=== PATIENT | female | born 1985 | race Caucasian/White ===

== ENCOUNTER 2022-12-26 11:13 | Emergency (ER) | payer MEDICAID, SELFPAY ==
[2022-12-26 11:51] VITALS: BP 132/90; PULSE 66; RESP 16; TEMP 36.7; O2SAT 100; BMI 30.4
[2022-12-26 12:00] VITALS: PULSE 104; RESP 16
--- NOTE | 2022-12-26 12:09 | W.ED.ABDPA2 ---
HPI - Abdominal Pain General: Chief Complaint: Abdominal Pain Stated Complaint: upper abd pain Time Seen by Provider: 12/26/22 11:38 History of Present Illness: Patient presents to the ER with epigastric abdominal pain. Pain has been going on for about 2 weeks waxing and waning but here in the last 24 hours is gotten severe enough patient is decided to come to the ER to have it checked out. Patient says when she was out in a waiting room she took a drink of water felt up to go all way down and hit a certain spot in her epigastric region that just said everything off made everything extremely worse. Patient does not have a history of peptic ulcer disease and is on no medicines. MD elicited complaint: abdominal pain Pertinent past history: none Onset (ago): week(s) (A couple weeks worse in the last 24 hours) Pain Consistency: intermittent Location: Epigastric Severity: moderate Quality: burning Radiation: none Migration to: no migration Exacerbating factors: eating Relieving factors: nothing Associated Symptoms: Reports nausea; Denies chills, dysuria and fever(s) Review of Systems General: Reports: 10 or more systems reviewed and unremarkable except in HPI and below Const: Denies: fever(s) or chills Eyes: Denies: change in vision or photophobia ENMT: Denies: throat pain or enlarged tonsils Card: Denies: chest pain, palpitations or irregular heart rhythm Resp: Denies: dyspnea, productive cough or non-productive cough GI: Reports: abdominal pain and nausea : Denies: flank pain, difficulty voiding or dysuria Musc: Denies: neck pain, back pain or extremity pain Skin/Breast: Denies: rash or pruritus Physical Exam Const: COMMON NORMALS: no acute distress, average body habitus, patient oriented x3, no limitations, healthy appearing, alert and well nourished HENMT: COMMON NORMALS: normocephalic, atraumatic, hearing grossly normal bilaterally, external ears normal, Normal external nose present and moist oral mucous membranes HEAD & SCALP: normocephalic and atraumatic NOSE: Normal external nose present EXTERNAL EAR: Yes external ears normal Eye: COMMON NORMALS: Equal, round and reactive pupils present, EOMs intact bilaterally, conjunctivae normal and no scleral icterus CONJUNCTIVA: Yes conjunctivae normal PUPIL: Yes Equal, round and reactive pupils present Neck/C-Spine: COMMON NORMALS: full ROM, no lymphadenopathy, supple, no meningeal signs, no JVD and Thyroid normal THYROID: Thyroid normal Lymph: LYMPHATIC: no lymphadenopathy noted Chest: COMMONS NORMALS: normal inspection of the chest and normal palpation of entire chest wall Resp: COMMON NORMALS: normal respiratory effort, No retractions, No use of accessory muscles and clear to auscultation bilaterally AUSCULTATION: clear to auscultation bilaterally Cardio: COMMON NORMALS: no JVD, regular rate, regular rhythm, S1 normal heart sound present, S2 normal heart sound present, No gallops present (Cardio), No clicks present (Cardio) and No murmurs present (Cardio) RATE: regular rate RHYTHM: regular rhythm HEART SOUNDS: S1 normal heart sound present and S2 normal heart sound present GI: COMMON NORMALS: Soft to palpation INSPECTION: Yes normal to inspection AUSCULTATION: Yes normoactive bowel sounds PALPATION: Yes Soft to palpation and Yes Tenderness to palpation present (GI) (Epigastric region) : COMMON NORMALS: Yes no CVA tenderness BLADDER/KIDNEY EXAM: Yes no CVA tenderness Back/Pelvis: COMMON NORMALS: no CVA tenderness Extremity: COMMON NORMALS: normal to inspection Neuro: COMMON NORMALS: patient oriented x3 SENSORIUM/ORIENTATION: Yes alert MENINGEAL SIGNS: Yes no meningeal signs Course Vital Signs: Vital signs: Vital Signs Temperature 98.1 F 12/26/22 11:51 Pulse Rate 104 H 12/26/22 12:00 Respiratory Rate 16 12/26/22 12:00 Blood Pressure 132/90 12/26/22 11:51 Pulse Oximetry 100 12/26/22 11:51 Oxygen Delivery Me thod Room Air 12/26/22 11:51 MDM - Abdominal Pain Medical Decision Making Patient presents to the ER with epigastric pain that is worse with drinking. Patient has not had this before. Physical exam was performed and lab work was ordered and reviewed which was essentially benign patient was given a GI cocktail which drastically improved the pain. These findings was discussed with the patient and peptic ulcer disease was explained to the patient. Patient will be discharged on Pepcid twice daily and is to follow-up with her family practice doctor within 1 to 2 weeks as needed. Differential Diagnosis Likely abdominal pain; Unlikely acute appendicitis, calculus of kidney, constipation, diverticulitis, endometriosis, gastroenteritis, pancreatitis or small bowel obstruction Medical Records I reviewed the patient's medical records. Lab Data I reviewed the patient's lab results. 12/26/22 12:23 12/26/22 12:23 Labs/Radiology: Laboratory Results WBC 8.4 10^3/uL (4.0-10.0) 12/26/22 12:23 RBC 4.70 10^6/uL (4.1-5.3) 12/26/22 12:23 Hgb 14.1 g/dL (11.5-15.3) 12/26/22 12: Hct 41.3 % (37.0-47.0) 12/26/22 12: MCV 87.9 fl (81-99) 12/26/22 12: MCH 30.0 pg (28.0-34.0) 12/26/22 12: MCHC 34.1 g/dL (30.0-36.0) 12/26/22 12: RDW 12.5 % (12.1-15.1) 12/26/22 12: Plt Count 245 10^3/cmm (130-400) 12/26/22 12:23 MPV 9.0 fL (7.4-10.4) 12/26/22 12:23 Neut % (Auto) 81.0 % 12/26/22 12: Lymph % (Auto) 10.2 % 12/26/22 12:23 Perkins % (Auto) 6.0 % 12/26/22 12:23 Eos % (Auto) 1.7 % 12/26/22 12:23 Baso % (Auto) 0.6 % 12/26/22 12:23 Neut # (Auto) 6.77 10^3/uL (1.8-7.7) 12/26/22 12:23 Lymph # (Auto) 0.9 10^3/uL (0.8-4.8) 12/26/22 12:23 Perkins # (Auto) 0.5 10^3/uL (0.2-0.9) 12/26/22 12:23 Eos # (Auto) 0.1 10^3/uL (0.0-0.8) 12/26/22 12:23 Baso # (Auto) 0.1 10^3/uL (0.0-0.1) 12/26/22 12:23 Nucleated RBC % (auto) 0 % 12/26/22 12: Nucleated RBCs # 0.0 /100WBC 12/26/22 12:23 Sodium 134 mmol/L (136-145) L 12/26/22 12:23 Potassium 3.9 mmol/L (3.5-5.1) 12/26/22 12:23 Chloride 101 mmol/L (98-107) 12/26/22 12: Carbon Dioxide 21 mmol/L (22-29) L 12/26/22 12:23 Anion Gap 15.9 (5-19) 12/26/22 12:23 BUN 11 mg/dL (6-20) 12/26/22 12: Creatinine 0.8 mg/dL (0.5-0.9) 12/26/22 12: GFR Calculation 81.2 mL/min (90-130) L 12/26/22 12:23 Glucose 89 mg/dL (65-115) 12/26/22 12: Calculated Osmolality 277 mOsm/kg (285-295) L 12/26/22 12:23 Calcium 9.9 mg/dL (8.5-10.5) 12/26/22 12: Total Bilirubin 1.0 mg/dL (0.15-1.2) 12/26/22 12: AST 18 U/L (0-32) 12/26/22 12: ALT 19 U/L (0-33) 12/26/22 12:23 Alkaline Phosphatase 53 U/L (35-105) 12/26/22 12:23 Total Protein 6.8 g/dL (6.6-8.7) 12/26/22 12: Albumin 4.1 g/dL (3.5-5.2) 12/26/22 12:23 Globulin 2.7 g/dL (1.3-4.6) 12/26/22 12: Lipase 20 U/L (13-60) 12/26/22 12:23 HCG, Qual Negative (Negative) 12/26/22 12:23 Urine Color Yellow (Yellow) 12/26/22 11:58 Urine Appearance Clear (CLEAR) 12/26/22 11:58 Urine pH 6 (5-7) 12/26/22 11:58 Ur Specific Mellen 1.025 (1.005-1.030) 12/26/22 11:58 Urine Protein Neg (Negative) 12/26/22 11:58 Urine Glucose (UA) Norm (Normal) 12/26/22 11:58 Urine Ketones Negative (Negative) 12/26/22 11:58 Urine Blood Neg (Negative) 12/26/22 11:58 Urine Nitrate Negative (Negative) 12/26/22 11:58 Urine Bilirubin Neg (Negative) 12/26/22 11:58 Urine Urobilinogen Neg mg/dL (Negative) 12/26/22 11:58 Ur Leukocyte Esterase Negative (Negative) 12/26/22 11:58 Discharge Plan Discharge Patient Disposition: Home Clinical Impression: Gastritis Qualifiers: Gastritis type: unspecified gastritis Chronicity: acute Gastritis bleeding: without bleeding Qualified Code(s): K29.00 - Acute gastritis without bleeding Peptic ulcer of stomach Qualifiers: Gastric ulcer chronicity: acute Qualified Code(s): K25.3 - Acute gastric ulcer without hemorrhage or perforation Condition: Stable Prescriptions: New famotidine [Pepcid] 20 mg tablet 20 mg PO BID Qty: 60 0RF Discharge Orders: Discharge ED (Routine); Ordered 12/26/22 Ordered By: Conrado Gonzalez Patient Instructions: Peptic Ulcers Coding Level of Care Code ED Exercise Science Instructor for Patricia Cleveland
[2022-12-26 12:19] LABS: Add Urine Microscopic? NO; Charge for UA Resulting for Rev
[2022-12-26 12:25] LABS: Bilirubin Urine Neg (Negative); Blood Urine Neg (Negative); Glucose Urine UA Norm (Normal); Ketones Urine Negative (Negative); Leukocyte Esterase Urine Negative (Negative); Nitrate Urine Negative (Negative); Protein Urine Neg (Negative); Specific Gravity, Urine 1.025 (1.005-1.030); Urine Appearance Clear (CLEAR); Urine Color Yellow (Yellow); Urobilinogen Urine Neg (Negative); pH Urine 6 (5-7)
[2022-12-26 12:30] LABS: Basophils # 0.1 10^3/uL (0.0-0.1); Basophils % 0.6 %; Eosinophils # 0.1 10^3/uL (0.0-0.8); Eosinophils % 1.7 %; Hematocrit 41.3 % (37.0-47.0); Hemoglobin 14.1 g/dL (11.5-15.3); Lymphocytes # 0.9 10^3/uL (0.8-4.8); Lymphocytes % 10.2 %; Mean Corpuscular HGB Conc 34.1 g/dL (30.0-36.0); Mean Corpuscular Volume 87.9 fl (81-99); Monocytes # 0.5 10^3/uL (0.2-0.9); Neutrophils # 6.77 10^3/uL (1.8-7.7); Nucleated Red Blood Cells % 0 %; Platelet Count 245 10^3/cmm (130-400); Red Cell Distribution Width 12.5 % (12.1-15.1); White Blood Count 8.4 10^3/uL (4.0-10.0)
[2022-12-26] MEDS: sodium chloride 0.9% 1,000 ML 999 ML IV (12:38)
[2022-12-26] MEDS: ondansetron 2 mg/ML SDV 2 mL 4 MG IVP (12:38)
[2022-12-26 12:43] LABS: HCG, Serum Qual Negative (Negative)
[2022-12-26 12:48] LABS: Alanine Aminotransferase 19 U/L (0-33); Albumin Level 4.1 g/dL (3.5-5.2); Alkaline Phosphatase 53 U/L (35-105); Anion Gap 15.9 (5-19); Aspartate Amino Transferase 18 U/L (0-32); Blood Urea Nitrogen 11 mg/dL (6-20); Calcium 9.9 mg/dL (8.5-10.5); Carbon Dioxide 21 mmol/L (22-29); Chloride 101 mmol/L (98-107); Globulin 2.7 g/dL (1.3-4.6); Glomerular Filtration Rate 81.2 mL/min (90-130); Glucose 89 mg/dL (65-115); Lipase 20 U/L (13-60); Osmolality Calculated 277 mOsm/kg (285-295); Potassium 3.9 mmol/L (3.5-5.1); Sodium 134 mmol/L (136-145); Total Protein 6.8 g/dL (6.6-8.7)
[2022-12-26] MEDS: lidocaine 2% viscous 15 ML, aluminum-mag hydrox-simethicon 30 ML, sucralfate oral liq 1 GM PO (13:14)
[2022-12-26 13:26] VITALS: BP 90/55; PULSE 98; RESP 14; O2SAT 95
--- NOTE | 2023-01-10 11:29 | DCPLANNER ---
TCM called patient due to no primary care physician - no answer at this time.
== END 2022-12-26 13:39 | disposition home or self-care (01) ==
PROVIDERS: Physician Assistant; Emergency Provider Emergency Medicine
DX: K29.00 Acute gastritis without bleeding (principal); K25.3 Acute gastric ulcer without hemorrhage or perforation
CPT/HCPCS: 80053; 81003; 83690; 84703; 85025; 96361; 96374; 99284; J2405; J7030

== ENCOUNTER → 2023-07-24 09:53 | Outpatient (BNVA) | payer MEDICAID, SELFPAY | PROVIDERS: PCP Family Medicine Adult Medicine; Visit Provider Family Medicine Adult Medicine | DX: M25.511 Pain in right shoulder (principal); G89.29 Other chronic pain; F17.200 Nicotine dependence, unspecified, uncomplicated; R05.9 Cough, unspecified; Z13.6 Encounter for screening for cardiovascular disorders; Z76.89 Persons encountering health services in other specified circumstances | CPT/HCPCS: 71046; 73030; 80053; 80061; 82306; 83036; 84443; 85025 ==

== ENCOUNTER → 2023-08-24 08:30 | Outpatient (BNVA) | payer MEDICAID, SELFPAY | PROVIDERS: PCP Family Medicine Adult Medicine; Referring Provider Family Medicine Adult Medicine; Visit Provider Physician Assistant | DX: M75.41 Impingement syndrome of right shoulder | CPT/HCPCS: 73030 ==

== ENCOUNTER → 2023-10-09 11:42 | Outpatient (BNVA) | payer MEDICAID, SELFPAY | PROVIDERS: PCP Family Medicine Adult Medicine; Visit Provider Obstetrics & Gynecology | DX: Z01.419 Encounter for gynecological examination (general) (routine) without abnormal findings (principal) | CPT/HCPCS: 87624 ==

== ENCOUNTER → 2023-10-29 08:40 | Outpatient (BNVA) | payer MEDICAID, SELFPAY | PROVIDERS: PCP Family Medicine Adult Medicine; Visit Provider Obstetrics & Gynecology | DX: Z30.431 Encounter for routine checking of intrauterine contraceptive device (principal) | CPT/HCPCS: 76830 ==

== ENCOUNTER 2023-11-22 11:49 | Day surgery (SDC) | payer MEDICAID, SELFPAY ==
[2023-11-22] VITALS (8 sets, daily range): BP systolic 103–121; BP diastolic 59–85; PULSE 58–91; RESP 16–18; TEMP 36.1–36.5; O2SAT 98–100; BMI 34.9
--- NOTE | 2023-11-22 02:57 | W.PM.OPSFHP ---
Same Day Surgery H&P Indication for Procedure/HPI DATE OF PROCEDURE: November 22, 2023 CHIEF COMPLAINT/INDICATIONFOR SURGICAL PROCEDURE: lost IUD strings PREOP DIAGNOSIS: lost IUD strings PLANNED PROCEDURE: Operation Date: 11/22/23 13:35 Proposed Procedures p Hysteroscopy(Not Applicable) - Kentrell Chance MD s Removal Of Interuterine Device(Not Applicable) - Kentrell Chance MD 38 y.o. 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 October 09, 2023 IUD string was not visible Now scheduled for hysteroscopic removal of IUD Medications/Allergies* Home Medications Medication Instructions Recorded Confirmed Type famotidine 20 mg tablet (Pepcid) 20 mg PO BID PRN Acid Reflux 07/24/23 11/21/23 History Allergies/Adverse Reactions Allergy/AdvReac Type Severity Reaction Status Date / Time No Known Allergies Allergy Verified 11/05/23 09:16 Pertinent History/Comorbid Conditions* Medical History (Updated 11/14/23 @ 19:01 by Bola Bell MD) Weight gain, abnormal Obesity Cough in adult Smoker Chronic right shoulder pain Endometriosis determined by laparoscopy Surgical History (Updated 07/24/23 @ 09:30 by Bola Bell MD) Hx of section History of tonsillectomy H/O sinus surgery S/P ACL repair H/O eye surgery Family History (Updated 10/09/23 @ 08:31 by Delma Sewell LPN) Hypercholesteremia Cancer Mother cervical Hypertension Mother Thyroid disease Father Denies family history of Colon cancer Ovarian cancer Prostate cancer Diabetes Heart disease Breast cancer Uterine cancer Stroke Social History Smoking and tobacco/nicotine status: current every day tobacco/nicotine user Quit status (tobacco/nicotine): considering quitting Alcohol intake: current Alcohol intake frequency: holidays/special occasions only Substance/Drug Use: never Pertinent Exam Findings alert, oriented x 3, clear to auscultation bilaterally and regular rate & rhythm Recommendations Surgery/Procedure today Coding Level of Care Code Acute Code for Chg Fwd Time Spent (min) 20
--- NOTE | 2023-11-22 11:55 | W.PM.OPSUD ---
Surgery/Procedure H&P Update DATE OF PROCEDURE: November 22, 2023 DATE H&P PERFORMED: 11/22/23 H&P UPDATE INFORMATION: I have reviewed H&P completed within last 30 days, I have examined patient prior to procedure and No changes to prior documentation PREOP DIAGNOSIS: lost intrauterine device strings PLANNED PROCEDURE: Operation Date: 11/22/23 13:35 Proposed Procedures p Hysteroscopy(Not Applicable) - Kentrell Chance MD s Removal Of Interuterine Device(Not Applicable) - Kentrell Chance MD
[2023-11-22] MEDS: sodium chloride 0.9% 1,000 ML 30 ML IV (12:19)
[2023-11-22 12:24] LABS: OR HCG Qualitative Urine Negative (Negative)
[2023-11-22] MEDS: scopolamine 1.5 Patch 1 PATCH TRANSDERMA (12:24)
--- NOTE | 2023-11-22 12:46 | ANES.PREANE2 ---
Pre-Anesthetic Assessment Height/Weight: Height 1.73 m Weight 104.326 kg Temp Pulse Resp BP Pulse Ox O2 Del Method 97.7 F 82 18 121/81 98 Room Air 11/22/23 12:04 11/22/23 12:04 11/22/23 12:04 11/22/23 12:04 11/22/23 12:04 11/22/23 12:05 Preop Diagnosis: lost intrauterine device strings Operation Date: 11/22/23 13:35 Proposed Procedures p Hysteroscopy(Not Applicable) - Kentrell Chance MD s Removal Of Interuterine Device(Not Applicable) - Kentrell Chance MD Familial anesthetic complications: None Was Beta Felisa taken within 24 hours: N/A Was Clonidine taken within 24 hours: N/A Last intake: Intake Last Liquid Date 11/21/23 Last Liquid Time 21:00 Last Solid Date 11/21/23 Last Solid Time 21:00 Social Tobacco and No alcohol 0.5 pack(s) per day 20 pack years Exam alert, oriented x 3 and clear to auscultation bilaterally Airway Submandibular: within normal limits Mallampati: Class II Dentition: full History/ROS No significant history except as noted Pulmonary Cough CV/HEM None reported None reported Hepatic None reported GI None reported Metabolic None reported Musc/skel None reported Neuropsych None reported Anesthetic Plan ASA status: 2 Anesthesia: Anesthesia Evaluation and General Risk of > 500 ml blood loss (7ml/kg in children): No Medications/Allergies Home Medications Medication Instructions Recorded Confirmed Last Taken Type famotidine 20 mg tablet (Pepcid) 20 mg PO BID PRN Acid Reflux 07/24/23 11/21/23 Unknown History meloxicam 15 mg tablet 15 mg PO DAILY #30 tabs 09/25/23 11/21/23 Unknown Rx bupropion HCl 300 mg 24 hr tablet, 300 mg PO QAM #30 tabs 10/24/23 11/21/23 11/21/23 Rx extended release levonorgestrel 21 mcg/24 hours (8 1 device intrauterine ONCE #1 ea 10/24/23 11/21/23 Unknown Rx yrs) 52 mg intrauterine device (Mirena) Allergies Allergy/AdvReac Type Severity Reaction Status Date / Time No Known Allergies Allergy Verified 11/22/23 11:59 Current Medications Generic Name Dose Route Start Last Admin Trade Name Freq PRN Reason Stop Dose Admin Sodium Chloride 1,000 mls @ 30 mls/hr 11/22/23 12:00 11/22/23 12:19 Sodium Chloride 0.9% IV 11/23/23 11:59 30 mls/hr .Q24H WILIAN Administration PFSH Anesthesia Medical History Weight gain, abnormal Obesity Cough in adult Smoker Chronic right shoulder pain Endometriosis determined by laparoscopy Surgical History Hx of section History of tonsillectomy H/O sinus surgery S/P ACL repair H/O eye surgery Family History Father Thyroid disease Mother Hypertension Cancer cervical Other Hypercholesteremia Denies family history of Colon cancer Ovarian cancer Prostate cancer Diabetes Heart disease Breast cancer Uterine cancer Stroke Social History Smoking and tobacco/nicotine status: current every day tobacco/nicotine user Quit status (tobacco/nicotine): considering quitting Alcohol intake: current Alcohol intake frequency: holidays/special occasions only Substance/Drug Use: never Data Anesthesia Cardiac Studies: No Data to Display
--- NOTE | 2023-11-22 13:35 | PM.OP ---
Operative Report Date of procedure: November 22, 2023 Pre-op diagnosis: mirena intrauterine device, lost strings Post-op diagnosis: same Post-op findings: normal endometrial cavity No polyps / fibroids Minimal endometrial tissue Intrauterine device, complete and intact Procedure done: hysteroscopy hysteroscopic removal of intrauterine device Implants: none Specimens removed/disposition: intrauterine device, complete and intact, discarded Surgeon: Kentrell Chance MD Anesthesia: General Estimated blood loss (mL): 0 Complications: none Condition: stable Disposition: PACU Brief History: 38 y.o. has mirena intrauterine device x two years string not visible scheduled for hysteroscopic removal Procedure: Informed consent signed. Patient was taken to the operating room. Anesthesia was induced. Patient was placed in dorsolithotomy position, prepped and draped for hysteroscopy. A bivalve speculum was placed in the vagina. The anterior lip of the cervix was grasped with a sharp-toothed tenaculum. The cervix was serially dilated with Hegar dilators. . A hysteroscope was placed into the endometrial cavity. The endometrial cavity was seen to be normal. There were no polyps or fibroids. There was a minimal amount of endometrial tissue. The intrauterine device was in endometrial cavity. This was removed using a endograsper inserted via the hysteroscope. The intrauterine device was removed complete and intact, discarded. The hysteroscope was then removed. The sharp-toothed tenaculum was removed. There was no bleeding from the endometrial cavity or cervix. The patient was then placed supine and awakened and taken to the PACU. Postop condition: stable EBL: none Sponge and instruments counts were normal x 2 Complications: none
--- NOTE | 2023-11-22 15:04 | ANE.PACU2 ---
Inpatient post-anesthesia follow up: Airway intact: Yes Vital signs: Temperature 97.2 F Pulse Rate 58 Respiratory Rate 18 Blood Pressure 121/85 Pulse Oximetry 99 Oxygen Delivery Me thod Room Air Oxygen Flow Rate Fraction of Inspir ed Oxygen Hydration adequate: Yes Nausea and vomiting: No Pain level: 2 Mental status: Baseline
== END 2023-11-22 14:18 | disposition home or self-care (01) ==
PROVIDERS: PCP Family Medicine Adult Medicine; Visit Provider Obstetrics & Gynecology
PROC: 0UJD8ZZ Inspection of Uterus and Cervix, Via Natural or Artificial Opening Endoscopic (ICD-10-PCS; CPT 58555; principal; 2023-11-22 13:25)
PROC: (CPT 58301; 2023-11-22 13:25)
DX: T83.32XA Displacement of intrauterine contraceptive device, initial encounter (principal); F17.200 Nicotine dependence, unspecified, uncomplicated
CPT/HCPCS: 58579; 81025; 84703; J1100; J2704; J7030

== ENCOUNTER 2024-05-06 09:51 | Outpatient (CLI) | payer MEDICAID, SELFPAY ==
--- NOTE | 2024-05-06 10:15 | MR_ITS ---
WS: [id number] MRI RIGHT SHOULDER HISTORY: right shoulder pain COMPARISON: Radiographs 08/24/2023 TECHNIQUE: Multiplanar sequences of the shoulder joint are submitted. Mild AC joint arthropathy. There is a small osteophyte extending inferiorly from the distal clavicle encroaching upon and deforming the supraspinatus muscle. No subacromial impingement. No os acromion. Increased T2 signal in the central biceps tendon at the bicipital groove. Tendon also appears slightl y thickened. Normal position of the humeral head and the glenoid. No fractures or marrow edema. No rotator cuff mu scle atrophy or edema. There is low signal within the glenohumeral joint which may be a small loose b rene. This persists on several sequences. But this could potentially be part of the labrum. Mild abnor mal signal in the anterior labrum with redundant soft tissue. MR/MR shoulder RT wo con* [id number] IMPRESSION: 1. Long head of the biceps tendinopathy at the bicipital groove. 2. No rotator cuff tendon tear. 3. Small osteophyte encroaching upon the distal supraspinatus muscle. 4. Abnormal signal in the glenohumeral joint. This could be a potential loose body or related to a torn anterior labrum. This is a tiny defect seen on multip le sequences.
== END 2024-05-06 09:52 | disposition home or self-care (01) ==
LOC: RAD 09:51
PROVIDERS: PCP Family Medicine Adult Medicine; Visit Provider Physician Assistant
DX: M75.41 Impingement syndrome of right shoulder (principal); M25.711 Osteophyte, right shoulder
CPT/HCPCS: 73221

== ENCOUNTER 2025-03-22 19:10 | Emergency (ER) | payer MEDICAID, SELFPAY ==
--- OUTSIDE RECORDS SUMMARY | 2021-11-08 03:40 | XMS_ITS | Continuity of Care Document ---
Author Organization [employer] enter Address [address] [place] [address] Phone Care Team Providers Care Extrusion Die Coordinator Name Role Phone Chanel Hernandez RDH Unavailable Unavailable Allergies, Adverse Reactions, Alerts Substance Reaction Status Criticality No Known Allergies Active No Inform ation Medications Medication Instructions Dosage Effective Dates (start - stop) Status Comments naproxen 500 mg tablet take 1 tablet by mouth 2 times daily (with breakfast and dinner) - Active Tussin 100 mg/5 mL oral liquid take 10 milliliter by oral route every 4 hours as needed 200 MG - Active Flonase Allergy Relief 50 mcg/actuation nasal spray,suspension inhale 2 spray by intranasal route every day in each nostril 100 MCG - Active VITAMINS (unknown strength) Not Available - Active Problems Condition Type Effective Dates (start - stop) Clini rodrigo Status Comments No Known Problems Procedures Procedure Date Prophylaxis - Adult [facility] k Bitewings - Four Films Intraoral - Periapical First Film Intraoral - Periapical Each Addl 2021 Intraoral - Periapical Each Addl 2021 Intraoral - Periapical Each Addl 2021 Periodic Oral Evaluation ORAL CANCER SCREENING Caries Risk Assessment - Low Self Management Goal Set Self Management Goal Reviewed 2 Resin, 3 Surfaces Posterior Resin, 3 Surfaces Posterior Treatment Plan Complete Self Management Goal Reviewed 9 USES TOBACCO Prophylaxis - Adult Oral Hy[facility] k Comprehensive Oral Evaluation 9 ACTIVE LESIONS Caries Risk Assessment - Med Sealant Exempt Self Management Goal Set Oral Hygiene Instructions Intraoral - Complete Series Level IV, New Patient INFLUENZA A & B Diastolic between 80 to 89 Systolic less than 130 Advance Directives Directive Yes / No Effective Date File Name No Information Encounters Encounter Description Practice Location Reason(s) For Visit Diagnoses Date Provider Providers Copied on Encounter [facility], [address] [place], [place], [id number], [place] tel:[phone] [facility] 1 Encounter for dental exam and cleaning w/o abnormal findings David [facility] [address] [place], [address], [place]. tel:[phone] [facility], [address] [place], [place], [id number], [place] tel:[phone] [facility] 1 Encounter for dental exam and cleaning w/o abnormal findings No Information [facility], [address] [place], [place], [id number], [place] tel:[phone] [facility] 1 Encounter for dental exam and cleaning w/o abnormal findings No Information [facility], [address] [place], [place], [id number], [place] tel:[phone] [facility] 1 Encounter for dental exam and cleaning w/o abnormal findings David MALONE [address] [place], [address], [place]. tel:[phone] [facility], [address] [place], [place], [id number], tel:[phone] [facility] 1 Encounter for dental exam and cleaning w/o abnormal findings No Information [facility], [address] [place], [place], [id number], [place] tel:[phone] [facility] No Information No Information Level IV, New Patient [facility], [address] [place], [place], [id number], [place] tel:[phone] [facility] 1 URI (chief complaint) Influenza A No Information Family History Family Member Type Diagnosis Age At Onset No Information Payers Payer name Insurance type Covered alliance party ID Authoriza tion(s) No Information Social History Type Description Quantity Date Captured Comments Sex Female Smoking Status No Information Chief Complaint And Reason For Visit No Information Reason For Referral Reason For Referral No Information Plan Of Treatment Date Type Action Status Goal Tobacco cessation counseling completed History Of Present Illness Encounter Date Complaint History Of Prese nt Illness URI The symptoms beg an 2 weeks ago. The symptoms have worsened. The symptoms occur constantly. The patient presents with chills, cough, fever, headache and myalgia. The patient does not present with diarrhea, nausea or vomiting. The patient denies any aggravating factors. Interventions that have been tried have not provided any relief. Additional information: pt is currently , pcp none. Functional Status Date Functional Assessmen t No Information Instructions Date Instruction Additional Infor juan Take the medications as directed for the full 5 daysStay on top of tylenol and motrin as needed for fevers and painUse the flonase daily to help dry you outDrink lots of fluidsReturn with any worsening, problems or concerns Related to Influenza A Assessments Type Assessment Date No Information Patient Care Teams Name Effective Dates (start - stop) Status Members No Information
[2025-03-22 19:16] VITALS: BP 157/90; PULSE 98; RESP 16; O2SAT 99
--- NOTE | 2025-03-22 19:54 | XRR_ITS ---
PROCEDURE INFORMATION: Exam: XR Right Ankle Exam date and time: 03/22/2025 8:19 PM Age: 39 years old Clinical indication: Injury or trauma; Fall; Blunt trauma; Ankle; Right; Additional info: Fall/pain TECHNIQUE: Imaging protocol: Radiologic exam of the right ankle. Views: 3 or more views. COMPARISON: CR XR foot RT min 3V* [id number] 03/22/2025 8:19 PM FINDINGS: Bones/joints: No acute displaced fracture or dislocation. Soft tissues: Soft tissue edema XR/XR ankle RT min 3V* [id number] IMPRESSION: No acute displaced fracture or dislocation.
--- NOTE | 2025-03-22 19:54 | XRR_ITS ---
PROCEDURE INFORMATION: Exam: XR Right Foot Exam date and time: 03/22/2025 8:19 PM Age: 39 years old Clinical indication: Injury or trauma; Fall; Blunt trauma; Foot; Right TECHNIQUE: Imaging protocol: Radiologic exam of the right foot. Views: 3 or more views. COMPARISON: CR (LOW EXM, ) 03/22/2025 8:19 PM FINDINGS: Bones/joints: Normal. No acute displaced fracture or dislocation. Soft tissues: Soft tissue edema. XR/XR foot RT min 3V* [id number] IMPRESSION: No acute findings.
[2025-03-22 21:36] VITALS: PULSE 86; RESP 16; O2SAT 97
--- NOTE | 2025-03-22 22:21 | W.ED.EXTPRO ---
Documented by User: [email or web address] Gil 03/22/25 22:25 HPI - Extremity Problem General: Chief complaint: Extremity Injury, Lower Stated complaint: Rt Ankle Pain Time Seen by Provider: 03/22/25 19:23 Source: patient Mode of arrival: ambulatory Limitations: no limitations History of Present Illness: Patient is a 39-year-old female who presents the Emergency Department complaining of right foot pain after falling off of a truck, stating this was an approximate 2 foot fall. States that she has been ambulating throughout the day, but pain has steadily gotten worse and she has had swelling to the dorsum of the foot into the ankle. States she feels popping and twisting when she walks. No previous surgeries. She took Tylenol earlier with no relief. MD Complaint: joint pain Onset (ago): hour(s) Pain Consistency: constant Location: right and lower extremity (Ankle) Associated symptoms: Deny chest pain, fever(s) or rash Related Data Home Medications ?Medication ?Instructions ?Recorded ?Confirmed norgestimate-ethinyl estradiol tab PO 10/29/24 10/29/24 0.18mg/0.215mg/0.25mg-0.035mg(28)tablet (Tri-Sprintec (28)) phentermine 37.5 mg tablet mg PO 10/29/24 10/29/24 Previous Rx's ?Medication ?Instructions ?Recorded prednisone 20 mg tablet 40 mg (2 x 20 mg) PO DAILY 5 days 10/29/24 #20 tabs Allergies Allergy/AdvReac Type Severity Reaction Status Date / Time No Known Allergies Allergy Verified 10/29/24 18:34 Review of Systems General: Reports: 10 or more systems reviewed and unremarkable except in HPI and below Const: Denies: fever(s) or chills Card: Denies: chest pain Resp: Denies: dyspnea or productive cough GI: Denies: abdominal pain, nausea, vomiting or diarrhea : Denies: flank pain Musc: Reports: extremity pain, extremity swelling, joint pain, joint swelling and limited range of motion; Denies: neck pain, back pain, joint redness, joint warmth or muscle weakness Skin/Breast: Denies: rash Neuro: Denies: headache(s), numbness in extremities or weakness in extremities PFS ED PFSH: Medical History Obesity Smoker Chronic right shoulder pain Endometriosis determined by laparoscopy Surgical History Hx of section History of tonsillectomy H/O sinus surgery S/P ACL repair H/O eye surgery Family History Father Thyroid disease Mother Hypertension Cancer cervical Other Hypercholesteremia Denies family history of Colon cancer Ovarian cancer Prostate cancer Diabetes Heart disease Breast cancer Uterine cancer Stroke Social History Smoking and tobacco/nicotine status: current every day tobacco/nicotine user Quit status (tobacco/nicotine): considering quitting Alcohol intake: current Alcohol intake frequency: holidays/special occasions only Substance/Drug Use: never Marital status: Physical Exam Const: COMMON NORMALS: no acute distress, patient oriented x3, no limitations, healthy appearing, alert and well nourished HENMT: COMMON NORMALS: normocephalic and atraumatic HEAD & SCALP: normocephalic and atraumatic Neck/C-Spine: COMMON NORMALS: full ROM, supple and no meningeal signs Resp: COMMON NORMALS: normal respiratory effort, No use of accessory muscles and clear to auscultation bilaterally AUSCULTATION: clear to auscultation bilaterally Cardio: COMMON NORMALS: regular rate and regular rhythm RATE: regular rate RHYTHM: regular rhythm Extremity: NARRATIVE EXTREMITY EXAM: Tender to palpation to right lateral foot and ankle. Mild bruising noted. Positive inversion ankle testing. No tenderness to palpation of the proximal fibula. Pulses intact. Swelling noted to right lateral ankle. Antalgic gait into the ED. Neuro: COMMON NORMALS: patient oriented x3, moves all extremities, no focal motor deficits and no sensory deficits noted SENSORIUM/ORIENTATION: Yes alert MENINGEAL SIGNS: Yes no meningeal signs Skin: COMMON NORMALS: no rashes or lesions noted GENERAL SKIN EXAM: no rashes or lesions noted Course Vital Signs: Vital signs: Vital Signs Pulse Rate 86 03/22/25 21:36 Respiratory Rate 16 03/22/25 21:36 Blood Pressure 157/90 03/22/25 19:16 Pulse Oximetry 97 03/22/25 21:36 Oxygen Delivery Me thod Room Air 08/10/25 19:16 MDM - Extremity (Nontraumatic) Medical Decision Making Patient presented after right ankle injury. Swelling and tenderness on exam to the right lateral ankle, she had been ambulatory prior to coming in. Neurovascular status intact. X-ray not showing any acute findings, this is presenting as a foot sprain and she will be given crutches as needed for comfort, and Payam bandage prior to discharge. She request work note and pain meds for home, she is given Elmer to take home for breakthrough pain. Lab Data Radiology Impressions Ankle X-Ray 03/22/25 19:54 IMPRESSION: No acute displaced fracture or dislocation. Foot X-Ray 03/22/25 19:54 IMPRESSION: No acute findings. All radiology interpretation(s) finalized by discharge Discharge Plan Discharge Patient Disposition: Home Clinical Impression: Sprain of foot, right Qualifiers: Encounter type: initial encounter Qualified Code(s): S93.601A - Unspecified sprain of right foot, initial encounter Condition: Stable Prescriptions: No Action norgestimate-ethinyl estradiol [Tri-Sprintec (28)] 0.18/0.215/0.25 mg-35 mcg (28) tablet PO phentermine 37.5 mg tablet PO prednisone 20 mg tablet 40 mg PO DAILY 5 Days Qty: 20 0RF Discharge Orders: Discharge ED (Routine); Ordered 03/22/25 Ordered By: Maik Grande Patient Instructions: Opioid Safety, Pain Management, Patient Portal & Trae Instructions Activity Restrictions/Additional Instructions: Foot sprain care Thank you for coming in today. The X-ray did not show a broken bone. The diagnosis is a foot/ankle sprain, which means the ligaments (the bands that support the joint) are stretched or torn. Most people recover well with the steps below. What to do over the next 1?2 weeks - Protect and support - Use the brace, lace-up support, or elastic wrap as instructed to limit painful motion and protect the ligaments while they heal. Using a stirrup/lace-up brace with an elastic wrap often helps people get back to normal activities faster than wrap alone. - Wear supportive shoes with a firm heel counter and good arch support. - Rest and gradual activity - For the first 24?48 hours, limit activities that increase pain or swelling. - Start putting weight on the foot as comfort allows. Use crutches only if needed for pain. Progress walking a little more each day, staying within pain limits. Early, gentle movement and weight bearing (as tolerated) help recovery. - Ice - Apply cold packs for 15?20 minutes at a time, 3?5 times per day during the first 3?7 days, or as needed for pain and swelling. Do not place ice directly on the skin. - Compression - Keep the elastic wrap or compression sleeve on during the day to control swelling. Rewrap if it feels too tight (numbness, tingling, color change). - Elevation - When resting, elevate the foot above the level of the heart to reduce swelling, especially in the first several days. Pain control - Over?the?counter options can reduce pain and help function. Choices include: - Acetaminophen (paracetamol), following label directions. - Nonsteroidal anti?inflammatory drugs (NSAIDs), oral or topical, if safe for you (for example, ibuprofen or naproxen per label). NSAIDs reduce pain and swelling and improve short?term function after ankle sprains. - If there is a history of stomach, kidney, heart problems, bleeding risk, or other concerns, use acetaminophen instead and follow up with a clinician about pain options. Gentle exercises to start in the first week (if pain allows) - Range of motion: Several times per day, write the alphabet in the air with the big toe, or move the ankle up/down and in/out without pushing into sharp pain. - Calf and foot stretches: Gentle calf stretches with the knee straight and bent, 2?3 times per day, not forcing into pain. - Muscle activation: Light towel scrunches with the toes and gentle ankle pushes against the hand/band in all directions, staying pain?free. - As pain improves, add balance: Stand on the injured leg holding onto a counter for support, aiming for short holds several times per day, progressing gradually. Balance training helps prevent future sprains. What to avoid - Avoid heat (heating pads, hot tubs) in the first several days, which can increase swelling. - Avoid activities that cause limping or sharp pain. Increase activity step by step rather than all at once. Expected recovery - Many grade I?II sprains improve significantly over 2?4 weeks, with steadier gains in strength and balance over 6?8 weeks. Early protected movement and bracing typically speed return to normal activities compared with strict rest or casting. - Swelling and mild soreness can last for several weeks. This is common and should slowly improve. Return to work, school, and sports - Daily walking and desk work: Return as comfort allows with the brace on. Take short breaks to elevate the foot. - Standing or manual work: Consider a gradual return plan and continued brace use; discuss with an employer if accommodations are needed. - Sports: Return in stages. Pain?free walking ? light jogging ? cutting/pivoting ? practice ? full play. Keep using a brace or taping when returning to higher?risk activities, and continue balance/strength exercises to lower the risk of another sprain. When to seek medical care urgently - New or worsening numbness, tingling, or the foot becomes cold or very pale. - Severe pain or swelling that is getting worse, not better, after 48?72 hours of care. - Inability to put any weight on the foot after several days. - Redness, warmth, fever, or concern for infection. - Pain or tenderness higher up the leg, at the base of the fifth toe, or on the midfoot/navicular that was not present before, or if walking becomes suddenly harder. Sometimes small fractures don?t show right away; re?evaluation may be needed. Follow?up - A check?in within 1?2 weeks can help track progress and adjust exercises or supports. If pain, swelling, or function are not improving as expected by 2?3 weeks, consider a visit for re?examination and a physical therapy referral. Supervised exercise can help restore motion, strength, and balance and reduce the chance of re?injury. 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[employer] Documented by User: Srinivas Alvares DO 03/22/25 23:06 HPI - Extremity Problem General: Chief complaint: Extremity Injury, Lower Stated complaint: Rt Ankle Pain Time Seen by Provider: 03/22/25 19:23 Related Data Home Medications ?Medication ?Instructions ?Recorded ?Confirmed norgestimate-ethinyl estradiol tab PO 10/29/24 10/29/24 0.18mg/0.215mg/0.25mg-0.035mg(28)tablet (Tri-Sprintec (28)) phentermine 37.5 mg tablet mg PO 10/29/24 10/29/24 Previous Rx's ?Medication ?Instructions ?Recorded prednisone 20 mg tablet 40 mg (2 x 20 mg) PO DAILY 5 days 10/29/24 #20 tabs Allergies Allergy/AdvReac Type Severity Reaction Status Date / Time No Known Allergies Allergy Verified 10/29/24 18:34 [facility] ED PFSH: Medical History Obesity Smoker Chronic right shoulder pain Endometriosis determined by laparoscopy Surgical History Hx of section History of tonsillectomy H/O sinus surgery S/P ACL repair H/O eye surgery Family History Father Thyroid disease Mother Hypertension Cancer cervical Other Hypercholesteremia Denies family history of Colon cancer Ovarian cancer Prostate cancer Diabetes Heart disease Breast cancer Uterine cancer Stroke Social History Smoking and tobacco/nicotine status: current every day tobacco/nicotine user Quit status (tobacco/nicotine): considering quitting Alcohol intake: current Alcohol intake frequency: holidays/special occasions only Substance/Drug Use: never Marital status: Course Vital Signs: Vital signs: Vital Signs Pulse Rate 86 03/22/25 21:36 Respiratory Rate 16 03/22/25 21:36 Blood Pressure 157/90 03/22/25 19:16 Pulse Oximetry 97 03/22/25 21:36 Oxygen Delivery Me thod Room Air 03/22/25 19:16 MDM - Extremity (Nontraumatic) Medical Decision Making Patient presented after right ankle injury. Swelling and tenderness on exam to the right lateral ankle, she had been ambulatory prior to coming in. Neurovascular status intact. X-ray not showing any acute findings, this is presenting as a foot sprain and she will be given crutches as needed for comfort, and Payam bandage prior to discharge. She request work note and pain meds for home, she is given Elmer to take home for breakthrough pain. Patient was originally seen by Mr. Christiane PA-C. I agree with his history, evaluation, and management. Lab Data Radiology Impressions Ankle X-Ray 03/22/25 19:54 IMPRESSION: No acute displaced fracture or dislocation. Foot X-Ray 03/22/25 19:54 IMPRESSION: No acute findings. Discharge Plan Discharge Patient Disposition: Home Clinical Impression: Sprain of foot, right Qualifiers: Encounter type: initial encounter Qualified Code(s): S93.601A - Unspecified sprain of right foot, initial encounter Condition: Stable Prescriptions: No Action norgestimate-ethinyl estradiol [Tri-Sprintec (28)] 0.18/0.215/0.25 mg-35 mcg (28) tablet PO phentermine 37.5 mg tablet PO prednisone 20 mg tablet 40 mg PO DAILY 5 Days Qty: 20 0RF Discharge Orders: Discharge ED (Routine); Ordered 03/22/25 Ordered By: Maik Grande Patient Instructions: Opioid Safety, Pain Management, Patient Portal & Trae Instructions Activity Restrictions/Additional Instructions: Foot sprain care Thank you for coming in today. The X-ray did not show a broken bone. The diagnosis is a foot/ankle sprain, which means the ligaments (the bands that support the joint) are stretched or torn. Most people recover well with the steps below. What to do over the next 1?2 weeks - Protect and support - Use the brace, lace-up support, or elastic wrap as instructed to limit painful motion and protect the ligaments while they heal. Using a stirrup/lace-up brace with an elastic wrap often helps people get back to normal activities faster than wrap alone. - Wear supportive shoes with a firm heel counter and good arch support. - Rest and gradual activity - For the first 24?48 hours, limit activities that increase pain or swelling. - Start putting weight on the foot as comfort allows. Use crutches only if needed for pain. Progress walking a little more each day, staying within pain limits. Early, gentle movement and weight bearing (as tolerated) help recovery. - Ice - Apply cold packs for 15?20 minutes at a time, 3?5 times per day during the first 3?7 days, or as needed for pain and swelling. Do not place ice directly on the skin. - Compression - Keep the elastic wrap or compression sleeve on during the day to control swelling. Rewrap if it feels too tight (numbness, tingling, color change). - Elevation - When resting, elevate the foot above the level of the heart to reduce swelling, especially in the first several days. Pain control - Over?the?counter options can reduce pain and help function. Choices include: - Acetaminophen (paracetamol), following label directions. - Nonsteroidal anti?inflammatory drugs (NSAIDs), oral or topical, if safe for you (for example, ibuprofen or naproxen per label). NSAIDs reduce pain and swelling and improve short?term function after ankle sprains. - If there is a history of stomach, kidney, heart problems, bleeding risk, or other concerns, use acetaminophen instead and follow up with a clinician about pain options. Gentle exercises to start in the first week (if pain allows) - Range of motion: Several times per day, write the alphabet in the air with the big toe, or move the ankle up/down and in/out without pushing into sharp pain. - Calf and foot stretches: Gentle calf stretches with the knee straight and bent, 2?3 times per day, not forcing into pain. - Muscle activation: Light towel scrunches with the toes and gentle ankle pushes against the hand/band in all directions, staying pain?free. - As pain improves, add balance: Stand on the injured leg holding onto a counter for support, aiming for short holds several times per day, progressing gradually. Balance training helps prevent future sprains. What to avoid - Avoid heat (heating pads, hot tubs) in the first several days, which can increase swelling. - Avoid activities that cause limping or sharp pain. Increase activity step by step rather than all at once. Expected recovery - Many grade I?II sprains improve significantly over 2?4 weeks, with steadier gains in strength and balance over 6?8 weeks. Early protected movement and bracing typically speed return to normal activities compared with strict rest or casting. - Swelling and mild soreness can last for several weeks. This is common and should slowly improve. Return to work, school, and sports - Daily walking and desk work: Return as comfort allows with the brace on. Take short breaks to elevate the foot. - Standing or manual work: Consider a gradual return plan and continued brace use; discuss with an employer if accommodations are needed. - Sports: Return in stages. Pain?free walking ? light jogging ? cutting/pivoting ? practice ? full play. Keep using a brace or taping when returning to higher?risk activities, and continue balance/strength exercises to lower the risk of another sprain. When to seek medical care urgently - New or worsening numbness, tingling, or the foot becomes cold or very pale. - Severe pain or swelling that is getting worse, not better, after 48?72 hours of care. - Inability to put any weight on the foot after several days. - Redness, warmth, fever, or concern for infection. - Pain or tenderness higher up the leg, at the base of the fifth toe, or on the midfoot/navicular that was not present before, or if walking becomes suddenly harder. Sometimes small fractures don?t show right away; re?evaluation may be needed. Follow?up - A check?in within 1?2 weeks can help track progress and adjust exercises or supports. If pain, swelling, or function are not improving as expected by 2?3 weeks, consider a visit for re?examination and a physical therapy referral. Supervised exercise can help restore motion, strength, and balance and reduce the chance of re?injury. 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
[2025-03-22] MEDS: HYDROcodone-acetaminophen 7.5-325 mg Tablet 2 TAB PO (22:30)
== END 2025-03-22 22:35 | disposition home or self-care (01) ==
PROVIDERS: Emergency Provider Physician Assistant
DX: S93.601A Unspecified sprain of right foot, initial encounter (principal); F17.200 Nicotine dependence, unspecified, uncomplicated; W17.89XA Other fall from one level to another, initial encounter
CPT/HCPCS: 73610; 73630; 99283; J9999

== ENCOUNTER → 2025-04-22 08:10 | Outpatient (BNVA) | payer MEDICAID, SELFPAY | PROVIDERS: Visit Provider Podiatrist Foot & Ankle Surgery | DX: S92.101A Unspecified fracture of right talus, initial encounter for closed fracture (principal); X58.XXXA Exposure to other specified factors, initial encounter | CPT/HCPCS: 73610 ==